=== PATIENT | male | born 1960 | race Caucasian/White ===

== ENCOUNTER 2017-12-07 21:11 | Emergency (ER) | payer OTHER ==
[~2017-12-07] VITALS: Ht 175.3 cm; Wt 101.6 kg
[2017-12-07 21:36] VITALS: Ht 175.3 cm; Wt 101.6 kg
[2017-12-07 22:59] VITALS: BP 152/79
== END 2017-12-07 22:59 | disposition home or self-care (01) ==
LOC: ED 21:11
DX: I83.891 Varicose veins of right lower extremity with other complications (principal); I10 Essential (primary) hypertension